=== PATIENT | female | born 1955 | race Caucasian/White ===

== ENCOUNTER → 2018-01-24 | Outpatient (CLI) | payer OTHER ==
[~2018-01-24] MED LIST: IOPAMIDOL 370 MG/ML 200 ML INFUS..BTL INJ ONE; SODIUM CHLORIDE 0.9% 50ML 50 ML ONE
[2018-01-24 13:51] LABS: BLOOD UREA NITROGEN 13 mg/dL (7-26); BUN/CREATININE RATIO 16 (6-25); CREATININE, SERUM 0.81 mg/dL (0.57-1.11); EST GLOMERULAR FILTRATION RATE > 60 ML/MIN (60-)
--- NOTE | 2018-01-24 15:22 | Diagnostic Imaging Report ---
EXAM: CT of the abdomen and pelvis WITH contrast HISTORY: Anemia COMPARISON: None available. TECHNIQUE: The abdomen and pelvis were scanned utilizing a multidetector helical scanner. Coronal and sagittal reformats are provided. PROTOCOL: Routine IV CONTRAST: 100 cc of Isovue-370. ORAL CONTRAST: Volumen RADIATION DOSE: Total DLP: 760.5 mGy*cm Estimated effective dose: (DLP x 0.015 x size factor) COMPLICATIONS: None FINDINGS: LOWER THORAX: The distal esophagus is collapsed, but allowing for this, the distal esophageal wall appears nonspecifically thickened (series 3 image 21). HEPATOBILIARY: No focal hepatic lesions. No biliary ductal dilatation. The gallbladder is unremarkable. SPLEEN: No splenomegaly. PANCREAS: No focal masses or ductal dilatation. ADRENALS: No discrete adrenal nodule. KIDNEYS/URETERS: No hydronephrosis, stones, or solid mass lesions. GI TRACT: The distal stomach is nondistended, which limits evaluation. No bowel dilation. Mild sigmoid diverticulosis. PELVIS: The visualized pelvic organs appear unremarkable. PERITONEUM / RETROPERITONEUM: No free air or fluid. LYMPH NODES: No lymphadenopathy. VESSELS: Scattered atherosclerotic vascular calcifications, including the coronary arteries. BONES: No aggressive osseous lesion or acute fracture. SOFT TISSUES: Incidentally, a small fat-containing umbilical hernia, without associated inflammatory changes. IMPRESSION: 1. Questionable nonspecific thickening of the distal esophageal wall, consider direct visualization/endoscopy for further evaluation. 2. Incomplete evaluation of the stomach. This also could be further evaluated via direct visualization/endoscopy. 3. Mild sigmoid diverticulosis without diverticulitis. 4. Coronary atherosclerosis. Signed by: Dr. Onur Narvaez D.O., M.M.M. on 01/24/2018 3:19 PM
== END ==
LOC: CT 12:54
PROVIDERS: ATTEND Internal Medicine Gastroenterology
DX: D64.9 Anemia, unspecified (principal)
CPT/HCPCS: 36415; 74177; 82565; 84520; Q9967

== ENCOUNTER → 2018-02-13 | Day surgery (SDC) | payer OTHER ==
[~2018-02-13] MED LIST changes: +ACETAMINOPHEN650 MG PO; +ALLOPURINOL100 MG PO; +AMLODIPINE BESY10 MG PO; +ARMOUR THYROID60 MG PO; +ATENOLOL50 MG PO; +ATORVASTATIN CA20 MG PO; +FENTANYL CITRATE/PF 100MCG/2 ML INJ ONE; +FERROUS SULFAT325 M1 PO; +GABAPENTIN100 MG PO; -IOPAMIDOL 370 MG/ML 200 ML INFUS..BTL INJ ONE; +LOSARTAN POTAS100 MG PO; +MIDAZOLAM HCL 2 MG/2 ML VIAL ONE; +PANTOPRAZOLE SO40 MG PO; +PROAIR HFA INH8.5 GM IH; +PROPOFOL IV EMULSION 10 MG/ML 50 ML VIAL ONE; -SODIUM CHLORIDE 0.9% 50ML 50 ML ONE; +VITAMIN B-121000 MCG PO; +VITAMIN C500 M1 PO; +VITAMIN D5000 UNIT PO
[2018-02-13 12:57] VITALS: BP 154/68
--- OUTSIDE RECORDS SUMMARY | 2018-02-13 14:38 | XMS REPORT ---
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 Problem Name Problem Code Onset Date Status Entry Date Provider Comment Standard Description Annotate Anemia, iron deficiency 280.9 Active Jocelynn HARMANP Iron deficiency anemia, unspecified Thrombocytosis 238.71 Active Jocelynn HARMANP Essential thrombocythemia Dyslipidemia 272.4 Active Jocelynn HARMANP Other and unspecified hyperlipidemia Gout 274.9 Active Jocelynn HARMANP Gout, unspecified Hypertension, benign essential 401.1 Active Jocelynn HARMANP Benign essential hypertension Hypothyroidism 244.9 Active Jocelynn HARMANP Unspecified hypothyroidism Cough 786.2 Active Jocelynn HARMANP Cough Loss of appetite 783.0 Active Jocelynn HARMANP Anorexia URI 465.9 Active Jocelynn GÓMEZ Acute upper respiratory infections of unspecified site Abnormal fasting glucose 790.21 Active Jocelynn GÓMEZ Impaired fasting glucose Dyslipidemia 272.4 Active Jocelynn GÓMEZ Other and unspecified hyperlipidemia Annual exam V70.0 Active Jocelynn GÓMEZ Routine general medical examination at a health care facility Screening for hepatitis C V73.89 Active Jocelynn GÓMEZ Screening examination for other specified viral diseases Arthritis 716.90 Active Jocelynn Anne [employer] Arthropathy, unspecified, site unspecified MORBID OBESITY Active Jocelynn HARMANP Morbid obesity Osteoarthritis of right knee 715.16 Active Jocelynn HARMANP Osteoarthrosis, localized, primary, involving lower leg Unspecified fall, initial encounter E888.9 Active Jocelynn HARMANP Unspecified fall Mammogram, Screening V76.12 Inactive Jocelynn HARMANP Other screening mammogram Mammogram, Screening ICD-V76.12 Inactive Jocelynn HARMANP Vaccination Against Influenza V04.81 Inactive Jocelynn HARMANP Need for prophylactic vaccination and inoculation against influenza Vaccination Against Influenza ICD-V04.81 Inactive Jocelynn HARMANP Hypothyroidism, hx of ICD-244.9 Inactive Jocelynn HARMANP Hx of dyslipidemia ICD-272 Inactive Jocelynn HARMANP Hx of gout ICD-V12.2 Inactive Jocelynn HARMANP Hx of hypertension ICD-V12.59 Inactive Jocelynn HARMANP Hypothyroidism, hx of 244.9 Resolved Jocelynn HARMANP Unspecified hypothyroidism Hx of dyslipidemia 272 Resolved Jocelynn HARMANP Disorders of lipoid metabolism Hx of gout V12.2 Resolved Jocelynn HARMANP Personal history of endocrine, metabolic, and immunity disorders Hx of hypertension V12.59 Resolved Jocelynn GÓMEZ Other personal history of diseases of circulatory system Medication List Medication Instructions Start Date Stop Date Generic Name NDC Status Provider Patient Instruction JORGE ALBERTO THYROID 60 MG ORAL TABLET 1 tablet by mouth daily THYROID 71176657168 Active Jocelynn HARMANP Active FERROUS SULFATE 325 (65 FE) MG ORAL TABLET DELAYED RELEASE 1 by mouth 2 times a daily FERROUS SULFATE 11113534492 Active Jocelynn HARMANP Active VITAMIN C 500 MG ORAL TABLET 1 by mouth every day ASCORBIC ACID 58341822038 Active Jocelynn HARMANP Active ARMOUR THYROID 120 MG ORAL TABLET 1 tablet by mouth daily THYROID 15414546999 Active Maria Isabel Cho [facility] Active ALLOPURINOL 100 MG ORAL TABLET 1 by mouth every day ALLOPURINOL 54623837152 Active Jocelynn HARMANP Active AMLODIPINE BESYLATE 10 MG ORAL TABLET 1 tab by mouth daily AMLODIPINE BESYLATE 43870383833 Active Jocelynn HARMANP Active ATENOLOL 50 MG ORAL TABLET 1 by mouth twice daily ATENOLOL 25755967502 Active Jocelynn HARMANP Active ATORVASTATIN CALCIUM 20 MG ORAL TABLET 1 tablet by mouth daily ATORVASTATIN CALCIUM 26113185738 Active Jocelynn HARMANP Active GABAPENTIN 100 MG ORAL CAPSULE 1 by mouth once daily GABAPENTIN 40866783065 Active Jocelynn HARMANP Active LOSARTAN POTASSIUM 100 MG ORAL TABLET 1 tablet by mouth daily LOSARTAN POTASSIUM 08323418174 Active Jocelynn HARMANP Active PANTOPRAZOLE SODIUM 20 MG ORAL TABLET DELAYED RELEASE 1 By Mouth once a day PANTOPRAZOLE SODIUM 87741491957 Active Jocelynn HARMANP Active PROAIR HFA 108 (90 Base) MCG/ACT INHALATION AEROSOL SOLUTION 2 puffs every 4 - 6 hours as needed ALBUTEROL SULFATE 28828183039 Active Jocelynn HARMANP Active AUGMENTIN 500-125 MG ORAL TABLET 1 by mouth twice a day AUGMENTIN 500-125 MG ORAL TABLET 036612 AMOXICILLIN-POT CLAVULANATE Inactive PROMETHAZINE-DM 6.25-15 MG/5ML ORAL SYRUP 5mL By Mouth every 8 hours as needed PROMETHAZINE-DM 6.25-15 MG/5ML ORAL SYRUP 414224 PROMETHAZINE-DM Inactive AUGMENTIN 500-125 MG ORAL TABLET 1 by mouth twice a day AMOXICILLIN-POT CLAVULANATE 98093628293 No Longer Active Jocelynn HARMANP Active PROMETHAZINE-DM 6.25-15 MG/5ML ORAL SYRUP 5mL By Mouth every 8 hours as needed PROMETHAZINE-DM 47801211283 No Longer Active Jocelynn Rodríguez [facility] Active Immunizations Vaccine Administration Date Value Standard Description influenza immunization (Flu Vax) has been administered given influenza virus vaccine, unspecified formulation Vital Signs Date Name Value Unit Range Description blood pressure, diastolic 82 mm[Hg] BP borrego blood pressure, systolic 175 mm[Hg] BP sys height E&M 68 [in_us] Bdy height pulse rate E&M 63 /min Heart rate respiratory rate E&M 17 /min Resp rate temperature E&M 98.3 [degF] Body temperature weight E&M 288 [lb_av] Weight Measured blood pressure, diastolic 81 mm[Hg] BP borrego blood pressure, systolic 148 mm[Hg] BP sys height E&M 68 [in_us] Bdy height pulse rate E&M 65 /min Heart rate respiratory rate E&M 17 /min Resp rate temperature E&M 97.9 [degF] Body temperature weight E&M 275 [lb_av] Weight Measured blood pressure, diastolic 77 mm[Hg] BP borrego blood pressure, systolic 145 mm[Hg] BP sys height E&M 68 [in_us] Bdy height pulse rate E&M 60 /min Heart rate respiratory rate E&M 20 /min Resp rate temperature E&M 97.8 [degF] Body temperature weight E&M 274.20 [lb_av] Weight Measured blood pressure, diastolic 88 mm[Hg] BP borrego blood pressure, systolic 132 mm[Hg] BP sys height E&M 68 [in_us] Bdy height pulse rate E&M 58 /min Heart rate respiratory rate E&M 20 /min Resp rate temperature E&M 98.3 [degF] Body temperature weight E&M 282.20 [lb_av] Weight Measured blood pressure, diastolic 75 mm[Hg] BP borrego blood pressure, systolic 162 mm[Hg] BP sys height E&M 68 [in_us] Bdy height pulse rate E&M 58 /min Heart rate respiratory rate E&M 20 /min Resp rate temperature E&M 98.2 [degF] Body temperature weight E&M 279.40 [lb_av] Weight Measured Diagnostic Results Date Name Value Unit Range Description Lab Report: Fe+TIBC+Williams+Retic, CBC With Differential/Platelet, TSH Rfx o ... - Chemistry thyroid stimulating hormone, serum 13.160 u[iU]/mL 0.450-4.500 Lab Report: CBC With Differential/Platelet, Comp. Metabolic Panel (14), ... - Chemistry very low density lipoproteins 34 mg/dL 5-40 chloride, serum 100 mmol/L 96-106 urea nitrogen, blood 20 mg/dL 6-24 Lab Report: Fe+TIBC+Williams+Retic, CBC With Differential/Platelet, TSH Rfx o ... - Hematology mean corpuscular hemoglobin concentration, RBC 32.1 G/DL % 31.5-35.7 erythrocyte (RBC) count 3.88 X10E6/UL 10*6/mm3 3.77-5.28 Lab Report: CBC With Differential/Platelet, Comp. Metabolic Panel (14), ... - Serology hepatitis C antibody, serum <0.1 0.0-0.9 Lab Report: Fe+TIBC+Williams+Retic, CBC With Differential/Platelet, TSH Rfx o ... - Chemistry Absolute Neutrophils 5.5 X10E3/UL 10*3/uL 1.4-7.0 Lab Report: CBC With Differential/Platelet, Comp. Metabolic Panel (14), ... - Chemistry LDL cholesterol, serum 100 mg/dL 0-99 urea nitrogen/creatinine ratio, serum 22 9-23 Lab Report: Fe+TIBC+Williams+Retic, CBC With Differential/Platelet, TSH Rfx o ... - Hematology mean corpuscular volume, RBC 88 fL 79-97 Lab Report: CBC With Differential/Platelet, Comp. Metabolic Panel (14), ... - Chemistry HDL cholesterol, serum 40 mg/dL >39 Lab Report: Fe+TIBC+Williams+Retic, CBC With Differential/Platelet, TSH Rfx o ... - Chemistry ferritin, serum 38 ng/mL 15-150 Lab Report: Fe+TIBC+Williams+Retic, CBC With Differential/Platelet, TSH Rfx o ... - Hematology monocytes as percent of blood leukocytes 7 % Not Estab. Lab Report: Fe+TIBC+Williams+Retic, CBC With Differential/Platelet, TSH Rfx o ... - Chemistry reticulocyte count, corrected 1.8 % 0.6-2.6 iron binding capacity, unsaturated 312 ug/dL 131-425 Lab Report: CBC With Differential/Platelet, Comp. Metabolic Panel (14), ... - Chemistry creatinine, serum 0.92 mg/dL 0.57-1.00 albumin/globulin ratio, serum 1.4 1.2-2.2 cholesterol, serum 174 mg/dL 572-555 7666/03/27 creatinine, random, urine 88.7 mg/dL Not Estab. bilirubin, serum, total 0.5 mg/dL 0.0-1.2 Lab Report: Fe+TIBC+Williams+Retic, CBC With Differential/Platelet, TSH Rfx o ... - Hematology Eosinophil Absolute Count 0.2 X10E3/UL 10*3/uL 0.0-0.4 Lab Report: CBC With Differential/Platelet, Comp. Metabolic Panel (14), ... - Chemistry aspartate aminotransferase (SGOT), serum 25 U/L 0-40 Lab Report: Fe+TIBC+Williams+Retic, CBC With Differential/Platelet, TSH Rfx o ... - Hematology red blood cell distribution width 13.7 % 12.3-15.4 leukocyte count, blood 8.1 X10E3/UL 10*3/mm3 3.4-10.8 Lab Report: CBC With Differential/Platelet, Comp. Metabolic Panel (14), ... - Chemistry potassium, serum 4.9 mmol/L 3.5-5.2 Lab Report: Fe+TIBC+Williams+Retic, CBC With Differential/Platelet, TSH Rfx o ... - Chemistry immature granulocytes, percentage of total cells, blood 0 % Not Estab. Lab Report: CBC With Differential/Platelet, Comp. Metabolic Panel (14), ... - Chemistry albumin, serum 4.3 g/dL 3.5-5.5 Lab Report: Fe+TIBC+Williams+Retic, CBC With Differential/Platelet, TSH Rfx o ... - Hematology lymphocyte count, blood, automated 1.8 X10E3/UL 10*3/mm3 0.7-3.1 hematocrit, blood 34.0 % 34.0-46.6 Lab Report: CBC With Differential/Platelet, Comp. Metabolic Panel (14), ... - Chemistry sodium, serum 141 mmol/L 134-144 Lab Report: Fe+TIBC+Williams+Retic, CBC With Differential/Platelet, TSH Rfx o ... - Hematology neutrophils as percent of blood leukocytes 68 % Not Estab. basophils as percent of blood leukocytes 1 % Not Estab. Lab Report: Fe+TIBC+Williams+Retic, CBC With Differential/Platelet, TSH Rfx o ... - Chemistry iron saturation percent, serum 11 % 15-55 iron, serum 39 ug/dL 27-159 Office Visit: Acute Visit DALIA Rodríguez rm2 - Serology influenza virus A antigen negative Lab Report: CBC With Differential/Platelet, Comp. Metabolic Panel (14), ... - Chemistry carbon dioxide, venous blood 22 mmol/L 18-29 triglyceride, serum, fasting 170 mg/dL 0-149 calcium, serum 9.5 mg/dL 8.7-10.2 alanine aminotransferase (SGPT), serum 18 U/L 0-32 Lab Report: Fe+TIBC+Williams+Retic, CBC With Differential/Platelet, TSH Rfx o ... - Hematology mean corpuscular hemoglobin, RBC 28.1 pg 26.6-33.0 Lab Report: CBC With Differential/Platelet, Comp. Metabolic Panel (14), ... - Chemistry protein, total, serum 7.3 g/dL 6.0-8.5 alkaline phosphatase, serum 97 U/L 39-117 Lab Report: Fe+TIBC+Williams+Retic, CBC With Differential/Platelet, TSH Rfx o ... - Hematology hemoglobin, blood 10.9 g/dL 11.1-15.9 Office Visit: Acute Visit DALIA Rodríguez 2 - Lab Microbial identification kit, rapid strep method negative Lab Report: Fe+TIBC+Williams+Retic, CBC With Differential/Platelet, TSH Rfx o ... - Hematology lymphocytes as percent of blood leukocytes 22 % Not Estab. Lab Report: CBC With Differential/Platelet, Comp. Metabolic Panel (14), ... - Chemistry hemoglobin A1C, blood, as % of total hemoglobin 6.1 % 4.8-5.6 Lab Report: CBC With Differential/Platelet, Comp. Metabolic Panel (14), ... - Genetics/fertility eGFR if 79 mL/min/1.73m2 >59 Lab Report: Fe+TIBC+Williams+Retic, CBC With Differential/Platelet, TSH Rfx o ... - Chemistry thyroxine, serum, free 0.88 ng/dL 0.82-1.77 Lab Report: Fe+TIBC+Williams+Retic, CBC With Differential/Platelet, TSH Rfx o ... - Hematology basophil count, absolute 0.0 x10E3/uL 0.0-0.2 Lab Report: CBC With Differential/Platelet, Comp. Metabolic Panel (14), ... - Chemistry globulin, serum 3.0 1.5-4.5 Estimated Glomerular Filtration Rate (calc) 68 mL/min/1.73m2 >59 thyroxine, serum, total 8.3 ug/dL 4.5-12.0 Lab Report: CBC With Differential/Platelet, Comp. Metabolic Panel (14), ... - Urinalysis microalbumin/total urine volume <3.0 ug/mL mg/L Not Estab. Lab Report: Fe+TIBC+Williams+Retic, CBC With Differential/Platelet, TSH Rfx o ... - Hematology eosinophils as percent of blood leukocytes 2 % Not Estab. Lab Report: CBC With Differential/Platelet, Comp. Metabolic Panel (14), ... - Chemistry triiodothyronine (T3), serum 208 ng/dL 71-180 Lab Report: Fe+TIBC+Williams+Retic, CBC With Differential/Platelet, TSH Rfx o ... - Chemistry iron binding capacity, total 351 ug/dL 250-450 Lab Report: CBC With Differential/Platelet, Comp. Metabolic Panel (14), ... - Chemistry blood glucose, random 105 mg/dL 65-99 Lab Report: Fe+TIBC+Williams+Retic, CBC With Differential/Platelet, TSH Rfx o ... - Hematology monocyte count, blood, automated 0.6 X10E3/UL 10*3/uL 0.1-0.9 platelet count 358 X10E3/UL 10*3/mm3 150-379 Office Visit: Acute Visit DALIA Rodríguez rm2 - Lab influenza B virus antigen negative Encounters Date Encounter Provider Code Facility 14:26:40 CDT Est Patient Exp Problem - 71974 Jocelynn Rodríguez [facility] CPT-84285 [facility] 14:15:54 CDT Est Patient Exp Problem - 21801 Jocelynn Rodríguez [facility] CPT-14730 [facility] 11:04:57 DISINTEGRATOR OPERATOR Est Patient Exp Problem - 84219 Jocelynn Rodríguez [facility] CPT-48214 [facility] 14:59:50 DISINTEGRATOR OPERATOR Est Patient Exp Problem - 22263 Jocelynn Rodríguez [facility] CPT-44261 [facility] 14:06:58 DISINTEGRATOR OPERATOR Est Patient Exp Problem - 07583 Jocelynn Rodríguez [facility] CPT-33982 [facility] 10:27:54 CDT Est Patient Exp Problem - 56027 Jocelynn Rodríguez [facility] CPT-21710 [facility] 11:49:34 CDT New Patient Comprehensive - 39330 Jocelynn Rodríguez [facility] CPT-30040 [facility] Procedures Code Procedure Name Date Entry Date Standard Description CPT-34046 IM or SQ Injection 11:39:08 DISINTEGRATOR OPERATOR CPT-J1100 Injection, dexamethasone sodium phosphate, 1mg 11:39:08 DISINTEGRATOR OPERATOR CPT-31098 Rapid Strep - In House 11:39:08 DISINTEGRATOR OPERATOR CPT-38403 Rapid Flu - In House 11:39:07 DISINTEGRATOR OPERATOR CPT-56550 Est Patient Well Exam (40 - 64 Yrs) - [address]10 12:48:42 CDT
--- OUTSIDE RECORDS SUMMARY | 2018-02-13 14:38 | XMS REPORT ---
Author Author [facility] Address Unknown Phone Unavailable Care Team Providers Care Accounting Associate Name Role Phone ADRIA LENNON Unavailable Unavailable Problems This patient has no known problems. Allergies, Adverse Reactions, Alerts This patient has no known allergies or adverse reactions. Medications This patient has no known medications. Results Test Description Test Time Test Comments Text Results Atomic Results Result Comments CT ABDOMEN/PELVIS W 2018-01-24 15:10:00 [place] [address] Patient Name: BLU STANLEY MR #: [id number] : 1955 Age/Sex: 62/F Req #: [id number] Adm Physician: Ordered by: ADRIA LENNON MD Report #: [id number] Location: CT Room/Bed: Procedure: [id number] CT/CT ABDOMEN/PELVIS W Exam Date: 01/24/18 Exam Time: 1440 REPORT STATUS: Signed EXAM: CT of the abdomen and pelvis WITH contrast HISTORY: Anemia COMPARISON: None available. TECHNIQUE: The abdomen and pelvis were scanned utilizing a multidetector helical scanner. Coronal and sagittal reformats are provided. PROTOCOL: Routine IV CONTRAST: 100 cc of Isovue-370. ORAL CONTRAST: Volumen RADIATION DOSE: Total DLP: 760.5 mGy*cm Estimated effective dose: (DLP x 0.015 x size factor) COMPLICATIONS: None FINDINGS: LOWER THORAX: The distal esophagus is collapsed, but allowing for this, the distal esophageal wall appears nonspecifically thickened (series 3 image 21). HEPATOBILIARY: No focal hepatic lesions. No biliary ductal dilatation. The gallbladder is unremarkable. SPLEEN: N o splenomegaly. PANCREAS: No focal masses or ductal dilatation. ADRENALS: No discrete adrenal nodule. KIDNEYS/URETERS: No hydronephrosis, stones, or solid mass lesions. GI TRACT: The distal stomach is nondistended, which limits evaluation. No bowel dilation. Mild sigmoid diverticulosis. PELVIS: The visualized pelvic organs appear unremarkable. PERITONEUM / RETROPERITONEUM: No free air or fluid. LYMPH NODES: No lymphadenopathy. VESSELS: Scattered atherosclerotic vascular calcifications, including the coronary arteries. BONES: No aggressive osseous lesion or acute fracture. SOFT TISSUES: Incidentally, a small fat-containing umbilical hernia, without associated inflammatory changes. IMPRESSION: 1. Questionable nonspecific thickening of the distal esophageal wall, consider direct visualization/endoscopy for further evaluation. 2. Incomplete evaluation of the stomach. This also could be further evaluated via direct visualization/endoscopy. 3. Mild sigmoid diverticulosis without diverticulitis. 4. Coronary atherosclerosis. Signed by: Garcia EstebanODavid, M.M.M. on 01/24/2018 3:19 PM Dictated By: THOMAS WHITNEY DO Electr onically Signed By: THOMAS WHITNEY DO on 01/24/18 1519 Transcribed By: SOURAV on 01/24/181518 COPY TO: ADRIA LENNON MD
== END | disposition home or self-care (01) ==
LOC: OR 07:20
PROVIDERS: ATTEND Internal Medicine Gastroenterology
DX: K29.50 Unspecified chronic gastritis without bleeding (principal); K29.80 Duodenitis without bleeding; K22.70 Barrett's esophagus without dysplasia; K44.9 Diaphragmatic hernia without obstruction or gangrene; K21.9 Gastro-esophageal reflux disease without esophagitis; I10 Essential (primary) hypertension; D64.9 Anemia, unspecified; E78.00 Pure hypercholesterolemia, unspecified; E03.9 Hypothyroidism, unspecified; M10.9 Gout, unspecified; R00.1 Bradycardia, unspecified; Z01.810 Encounter for preprocedural cardiovascular examination; Z68.41 Body mass index [BMI] 40.0-44.9, adult
CPT/HCPCS: 43239; 93005; J2250

== ENCOUNTER → 2018-02-20 | Day surgery (SDC) | payer OTHER ==
[2018-02-20 12:30] VITALS: BP 141/55
== END | disposition home or self-care (01) ==
LOC: OR 08:42
PROVIDERS: ATTEND Internal Medicine Gastroenterology
DX: Z12.11 Encounter for screening for malignant neoplasm of colon (principal); D12.2 Benign neoplasm of ascending colon; K57.30 Diverticulosis of large intestine without perforation or abscess without bleeding; K64.8 Other hemorrhoids; K21.9 Gastro-esophageal reflux disease without esophagitis; M10.9 Gout, unspecified; I10 Essential (primary) hypertension; E78.00 Pure hypercholesterolemia, unspecified; E03.9 Hypothyroidism, unspecified; D64.9 Anemia, unspecified; G47.33 Obstructive sleep apnea (adult) (pediatric); E66.01 Morbid (severe) obesity due to excess calories; Z68.41 Body mass index [BMI] 40.0-44.9, adult
CPT/HCPCS: 45384; J2250

== ENCOUNTER → 2020-05-12 | Day surgery (SDC) | payer OTHER ==
[~2020-05-12] MED LIST changes: +CARVEDILOL12.5 MG PO; +EUTHYROX150 MCG PO; -FENTANYL CITRATE/PF 100MCG/2 ML INJ ONE; +GLIPIZIDE5 MG PO; +HYDROCHLOROTH12.5 MG PO; +LIDOCAINE HCL 2% LOCAL INJ 5 ML SDV VIAL INJ ONE; -MIDAZOLAM HCL 2 MG/2 ML VIAL ONE; +PROPOFOL IV EMULSION 10 MG/ML 20 ML VIAL ONE; -PROPOFOL IV EMULSION 10 MG/ML 50 ML VIAL ONE
[2020-05-12 12:15] VITALS: BP 184/80
== END | disposition home or self-care (01) ==
LOC: OR 07:40
PROVIDERS: ATTEND Internal Medicine Gastroenterology
DX: Z09 Encounter for follow-up examination after completed treatment for conditions other than malignant neoplasm (principal); Z87.19 Personal history of other diseases of the digestive system; K29.50 Unspecified chronic gastritis without bleeding; K29.80 Duodenitis without bleeding; R13.10 Dysphagia, unspecified; K21.9 Gastro-esophageal reflux disease without esophagitis; K44.9 Diaphragmatic hernia without obstruction or gangrene; K31.89 Other diseases of stomach and duodenum; G47.33 Obstructive sleep apnea (adult) (pediatric); I10 Essential (primary) hypertension; E11.9 Type 2 diabetes mellitus without complications; E03.9 Hypothyroidism, unspecified; D64.9 Anemia, unspecified; J45.998 Other asthma; E78.5 Hyperlipidemia, unspecified; M10.9 Gout, unspecified; M54.9 Dorsalgia, unspecified; E66.01 Morbid (severe) obesity due to excess calories; Z01.810 Encounter for preprocedural cardiovascular examination; Z01.812 Encounter for preprocedural laboratory examination; Z20.822 Contact with and (suspected) exposure to COVID-19; Z79.84 Long term (current) use of oral hypoglycemic drugs; Z68.42 Body mass index [BMI] 45.0-49.9, adult
CPT/HCPCS: 36415; 43239; 82948; 93005; J2001; J2704; U0002